=== PATIENT | female | born 1950 | race Two or more races ===

== ENCOUNTER 2024-12-02 14:13 | Emergency (ER) | payer MEDICARE, MEDICAID, SELFPAY ==
[2024-12-02 14:27] VITALS: BP 174/81; PULSE 72; RESP 20; TEMP 36.9; O2SAT 96
--- NOTE | 2024-12-02 14:30 | XR_ITS ---
Examination: CT brain head without contrast. 2-D sagittal coronal reconstructions Date and time of exam:December 02, 2024 1455 hours INDICATIONS: Onset generalized head pain today CTDI: vol (mGy):7 DLP: (mGycm):924 Technique: Multiple CT axial sections of the brain have been obtained, 5 mm slice thickness. Contrast has not been administered. 2-D sagittal, coronal reconstructions have been obtained Low dose protocols were performed. One or more of the following dose reduction techniques were used; automated exposure control, adjustment of the mA and/or KV according to patient size, use of iterative reconstruction technique. Findings: No significant ventricular enlargement. Probable calcification in the left basal ganglia Intra-axial or extra-axial hemorrhage density is not seen. No mass effect or midline shift Basal cisterns are not remarkable. Fourth ventricle is midline. Cranial vault intact. Significant left ethmoid left maxillary and sphenoid sinusitis Impression: Negative for acute hemorrhage, mass effect or midline shift
--- NOTE | 2024-12-02 14:31 | PD.EDRME ---
Rapid Medical Screening Exam E Arrival date/time: 12/02/24 14:13 74-year-old female with no known medical history presents to the emergency room with a chief complaint of a 10 out of 10 left-sided headache x 3 days. Patient is also complaining of generalized body tingling and fatigue I have greeted and performed a focused initial assessment of this patient. A comprehensive ED assessment and evaluation of the patient, analysis of all test results, and completion of the medical decision making process will be conducted by additional ED providers. Chief Complaint: Headache Time Seen by Provider: 12/02/24 14:26 Vital signs: Vital Signs Temperature 98.4 F 12/02/24 14:27 Pulse Rate 72 12/02/24 14:27 Respiratory Rate 20 12/02/24 14:27 Blood Pressure 174/81 H 12/02/24 14:27 Pulse Oximetry (%) 96 12/02/24 14:27 Oxygen Delivery Method Room Air 12/02/24 14:27 Vital signs reviewed by provider: Yes
[2024-12-02 14:56] LABS: Basophils # (Auto) 0.1 Thou/mm3 (0.0-0.2); Basophils % (Auto) 1 % (0-2.5); Eosinophils # (Auto) 0.2 Thou/mm3 (0.0-0.5); Eosinophils % (Auto) 2 % (0-10); Hematocrit 35.9 % (36.0-46.0); Hemoglobin 11.6 g/dL (12.0-16.0); Immature Granulocytes % (Auto) 1 % (0-0); Immature Granulocytes Auto 0.07 Thou/mm3 (0.00-0.00); Lymphocytes # (Auto) 2.7 Thou/mm3 (1.0-4.8); Lymphocytes % (Auto) 23 % (10-50); Mean Corpuscular HGB Conc 32.3 g/dl (31.0-37.0); Mean Corpuscular Hemoglobin 27.7 pg (25.0-35.0); Mean Corpuscular Volume 86 fL (80-100); Monocytes # (Auto) 1.1 Thou/mm3 (0.0-0.8); Monocytes % (Auto) 9 % (0-12); Neutrophils # (Auto) 7.8 Thou/mm3 (1.8-7.7); Neutrophils % (Auto) 65 % (37-80); Nucleated Red Blood Cell % 0 /100 WBC (0); Platelet Count 250 Thou/mm3 (140-440); RDW Standard Deviation 42.1 fL (36.4-46.3); Red Blood Count 4.19 Miln/mm3 (4.00-5.20); White Blood Count 11.9 Thou/mm3 (3.6-11.0)
[2024-12-02 15:12] LABS: B-Type Natriuretic Peptide 206 pg/mL (0-100)
[2024-12-02 15:15] LABS: Collection Type, Urine Clean Catch
[2024-12-02 15:19] LABS: Alanine Aminotransferase 10 U/L (10-49); Albumin, Serum 4.3 gm/dL (3.4-4.8); Albumin/Globulin Ratio 1.6 (1.2-2.2); Alkaline Phosphatase 72 U/L (46-116); Anion Gap 8 (7-16); Aspartate Amino Transferase 15 U/L (0-34); BUN/Creatinine Ratio 7 Ratio (12-20); Bilirubin,Total 0.3 mg/dL (0.3-1.2); Blood Urea Nitrogen 8 mg/dL (9-23); Calcium 9.1 mg/dL (8.3-10.6); Calcium (Corrected) 9.1 mg/dL (8.5-10.1); Carbon Dioxide 25.7 mMol/L (20.0-31.0); Chloride 104 mMol/L (98-107); Creatinine (Component) 1.1 mg/dL (0.6-1.3); Globulin 2.7 gm/dL (2.3-3.5); Glucose 103 mg/dL (74-106); Osmolality,Calculated 273 (275-295); Potassium 4.9 mMol/L (3.4-5.1); Sodium 138 mMol/L (136-145); Troponin I < 0.002 ng/mL (0.0-0.045); eGFR 53 See Note
[2024-12-02 15:31] LABS: Bilirubin,Urine Negative (Negative); Blood,Urine Negative (Negative); Clarity,Urine Clear (Clear/Hazy); Color,Urine Lt-Yellow (Lt Yel-Yel); Glucose, Urine Negative (Negative); Ketones,Urine Negative (Negative); Leukocyte Esterase,Urine Positive (Negative); Nitrite,Urine Negative (Negative); PH,Urine 6.5 (5.0-7.0); Protein,Urine Negative (Neg - Trace); RBC,Urine 2 /hpf (0-3); Specific Gravity,Urine 1.011 (1.001-1.035); Squamous Epithelial Cell,Urine 4 /hpf (0-5); Urobilinogen,Urine Negative mg/dL (0.0-1.0); WBC,Urine 2 /hpf (0-5)
--- NOTE | 2024-12-02 16:29 | EDNOTE_ITS ---
ED Headache RME/HPI General Chief Complaint: Headache Stated Complaint: CRUZ, HTN, weakness, numbness X 4 days Time Seen by Provider: 12/02/24 14:26 Arrival date/time: 12/02/24 14:13 RME / HPI RME / HPI Narrative: 74-year-old female with no known medical history presents to the emergency room with a chief complaint of a 10 out of 10 left-sided headache x 3 days. Patient is also complaining of generalized body tingling and fatigue. Patient denies any blurry vision. Denies any vomiting denies any chest pain denies any other complaints. Patient's family is also confused concerned about the blood pressure. Related Data Previous Rx's ?Medication ?Instructions ?Recorded acetaminophen 300 mg-codeine 30 mg 1 tab PO BID PRN pa in #20 tabs 12/02/24 tablet hydralazine 25 mg tablet 25 mg PO TID PRN htn #30 tab s 12/02/24 Allergies Allergy/AdvReac Type Severity Reaction Status Date / Time No Known Allergies Allergy Verified 12/02/24 14:19 Review of Systems Review of Systems Narrative Review of Systems: Review of system reviewed and within normal limits except mentioned in HPI ED Exam Narrative Physical exam: VITAL SIGNS: Reviewed. GENERAL APPEARANCE: Alert and interactive, follows commands, no acute distress, HEAD AND FACE: Non-traumatic. ENT: PERRL, pink conjunctivitis, eyelid no trauma, Mucous membrane moist. NECK: Supple, nontender, no nuchal rigidity. CHEST: No tenderness, no crepitus, no paradoxical movement, no retractions. LUNGS: Clear, well ventilated, symmetric, no rales, no wheezing, no ronchi, no stridor, good breath sounds bilaterally. HEART: Regular rate, regular rhythm, no murmur, no gallops. ABDOMEN: Soft, positive bowel sounds, nondistended, no guarding, nontender, no rebound, no masses, RECTAL: Deferred. GENITAL: Deferred. NEUROLOGICAL: Gross motor function intact sensory function intact, Appropriate for age. MUSCULOSKELETAL: low back nontender, full range of motion. EXTREMITIES: Nontender, full range of motion. SKIN: Color pink, dry, no rash, no lacerations, no abrasions, no contusions. LYMPHATICS: Deferred. Course Quality Measures none Orders Category Date Time Status EKG (ED ONLY) *Do not use* NOW Care 12/02/24 14:[address] head/brain wo con Stat Exams 12/02/24 14:30 Completed EKG (ED Only) Stat Exams 12/02/24 14:30 Ordered B-Type Natriuretic Peptide Stat Lab 12/02/24 14:39 Completed CBC Stat Lab 12/02/24 14:39 Completed Comprehensive Metabolic Panel Stat Lab 12/02/24 14:39 Completed Troponin I Stat Lab 12/02/24 14:39 Completed Urinalysis Stat Lab 12/02/24 15:11 Completed ACETAMINOPHEN w/COD 300-30 [Tylenol w/Cod #3] Med 12/02/24 16:28 Discontinued 1 tab PO X1 ONE hydrALAZINE HCL [Apresoline] Med 12/02/24 16:28 Discontinued 25 mg PO X1 ONE Vital Signs Vital signs: Vital Signs Temperature 98.4 F 12/02/24 14:27 Pulse Rate 72 12/02/24 14:27 Respiratory Rate 20 12/02/24 14:27 Blood Pressure 174/81 H 12/02/24 14:27 Pulse Oximetry (%) 96 12/02/24 14:27 Oxygen Delivery Method Room Air 12/02/24 14:27 Headache MDM Narrative MDM Narrative:: 74-year-old female with no known medical history presents to the emergency room with a chief complaint of a 10 out of 10 left-sided headache x 3 days. Patient is also complaining of generalized body tingling and fatigue. Patient denies any blurry vision. Denies any vomiting denies any chest pain denies any other complaints. Patient's family is also confused concerned about the blood pressure. EKG showed sinus rhythm, ventricular to 70 bpm, MN interval 131 MS, QRS duration 86 MS, ST segment elevation depression noted. Patient's workup today including CT scan of the head, cardiac workup, all came back unremarkable. Patient was given Tylenol with codeine, and hydralazine with significant fragment of high blood pressure. Blood pressure prior to discharge was noted to be 146/75 Patient data External records reviewed:: None Clinical information provided by:: patient Social determinants that could affect healthcare access:: none Patient has the following chronic illnesses:: Hypertension How is presenting disease/condition affected by chronic disease/condition?: exacerbated by Evaluation data The following diagnostics were reviewed and interpreted by me:: lab results, radiology exam(s) and EKG tracing(s) Lab and/or radiology exams considered but not ordered:: None Interpretation Summary: See results MDM Medications / Prescriptions Medications or Prescriptions considered but not ordered:: None Medication administrations:: Medication Administration History Discontinued Medications Acetaminophen/Codeine Phosphate (Acetaminophen W/Cod 300-30 Tablet) 1 tab PO X1 ONE Stop: 12/02/24 16:29 Last Admin: 12/02/24 17:04 Dose: 1 tab Documented By: VG Hydralazine HCl (Hydralazine Hcl 25 Mg Tablet) 25 mg PO X1 ONE Stop: 12/02/24 16:29 Last Admin: 12/02/24 17:04 Dose: 25 mg Documented By: VG Hydralazine, Tylenol codeine Consultations Consultation(s) initiated? (list below): No Consultation #1 (Physician, Specialty, Details): Stable Diagnosis Differential diagnosis headache: tension headache, headache and other (Hypertension) Most likely diagnosis given after review of the tests above:: Hypertension, headache Admission Indicated Admission indicated?: not indicated Admission Request Was there a request for admission?: No Disposition Plan Disposition Plan: Discharge Discharge Attestation Discharge Attestation: The patient and all family members were given an opportunity to ask questions and understood the discharge instructions. Discharge instructions specifically effects, indications for sooner follow up or return to the emergency department, and the expected course of current diagnosis. Patient condition: Stable Discharge Plan Plan Patient Disposition: HOME (Self Care) Discharge Disposition comment: Stable Prescriptions/Referrals Prescriptions/Med Rec: New hydralazine 25 mg tablet 25 mg PO TID PRN (Reason: htn) Qty: 30 0RF Rx Instructions: Every 8 hours for blood pressure above 180 systolic acetaminophen-codeine 300-30 mg tablet 1 tab PO BID PRN (Reason: pain) Qty: 20 0RF Referrals: Mariza Villeda PA-C [Primary Care Provider] - In 1 week Problem List Clinical Impression: Headache, Hypertension Patient/Caregiver Discharge Instructions Discharge Activity: activity as tolerated Education Materials: ED High Blood Pressure ... Additional Instructions: Thank you for the opportunity for serving you today. You are stable for discharged . You are advised to: Follow-up with your PCP in 1 to 2 days Return to ED for worsening of symptoms Increase oral fluids Take medication as prescribed Print Language: Christiane Stand Alone Forms: Bridget Award Info., Patient Portal Info Letter VIRGILIO/EMILEE Supervising Physician VIRGILIO/INFORMATION RECEPTIONIST Supervising Physician: MD Charlee
[2024-12-02 16:40] VITALS: BP 180/78; PULSE 67; RESP 16; TEMP 36.5; O2SAT 97
[2024-12-02 17:04] VITALS: BP 180/78; PULSE 67
[2024-12-02 17:04] LABS: Band Neutrophils (Manual) 1 % (0-6); Eosinophils (Manual) 2 % (0-4); Lymphocytes (Manual) 18 % (20-44); Monocytes (Manual) 9 % (2-9)
[2024-12-02] MEDS: ACETAMINOPHEN w/COD 300-30 TABLET 1 TAB PO (17:04)
[2024-12-02] MEDS: hydrALAZINE HCL 25 MG TABLET PO (17:04)
[2024-12-02 17:13] LABS: Neutrophils (Manual) 70 % (50-70)
[2024-12-02 17:56] VITALS: BP 146/75; PULSE 68; RESP 18; TEMP 36.4; O2SAT 97
== END 2024-12-02 18:06 | disposition home or self-care (01) ==
PROVIDERS: Nurse Practitioner Family; Emergency Provider Emergency Medicine; PCP Specialist
DX: R51.9 Headache, unspecified (principal); I10 Essential (primary) hypertension; R94.31 Abnormal electrocardiogram [ECG] [EKG]
CPT/HCPCS: 36415; 70450; 80053; 81001; 83880; 84484; 85025; 93005; 99284; A9270

== ENCOUNTER 2024-12-04 21:48 | Emergency (ER) | payer MEDICARE, MEDICAID, SELFPAY ==
[2024-12-04 21:49] VITALS: BMI 25.6
[2024-12-04 22:05] VITALS: BP 179/80; PULSE 66; RESP 18; TEMP 36.9; O2SAT 96
--- NOTE | 2024-12-04 22:14 | PD.EDRME ---
Rapid Medical Screening Exam RME Arrival date/time: 12/04/24 21:48 Chief Complaint: Dizziness Time Seen by Provider: 12/04/24 22:08 Vital signs: Vital Signs Temperature 98.4 F 12/04/24 22:05 Pulse Rate 66 12/04/24 22:05 Respiratory Rate 18 12/04/24 22:05 Blood Pressure 179/80 H 12/04/24 22:05 Pulse Oximetry (%) 96 12/04/24 22:05 Oxygen Delivery Method Room Air 12/04/24 22:05 RME Narrative: Headache, dizziness x 1 week. Patient seen in ED 12/02 for same complaint. Son states patient's blood pressures have been high.
--- NOTE | 2024-12-04 22:15 | EKG_ITS ---
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
[2024-12-04 22:40] LABS: Collection Type, Urine Clean Catch
[2024-12-04 22:44] LABS: Basophils # (Auto) 0.1 Thou/mm3 (0.0-0.2); Basophils % (Auto) 1 % (0-2.5); Eosinophils # (Auto) 0.2 Thou/mm3 (0.0-0.5); Eosinophils % (Auto) 2 % (0-10); Hematocrit 33.7 % (36.0-46.0); Hemoglobin 11.2 g/dL (12.0-16.0); Immature Granulocytes % (Auto) 1 % (0-0); Immature Granulocytes Auto 0.06 Thou/mm3 (0.00-0.00); Lymphocytes # (Auto) 2.9 Thou/mm3 (1.0-4.8); Lymphocytes % (Auto) 28 % (10-50); Mean Corpuscular HGB Conc 33.2 g/dl (31.0-37.0); Mean Corpuscular Hemoglobin 27.9 pg (25.0-35.0); Mean Corpuscular Volume 84 fL (80-100); Monocytes # (Auto) 1.1 Thou/mm3 (0.0-0.8); Monocytes % (Auto) 11 % (0-12); Neutrophils # (Auto) 5.9 Thou/mm3 (1.8-7.7); Neutrophils % (Auto) 58 % (37-80); Nucleated Red Blood Cell % 0 /100 WBC (0); Platelet Count 257 Thou/mm3 (140-440); RDW Standard Deviation 41.7 fL (36.4-46.3); Red Blood Count 4.01 Miln/mm3 (4.00-5.20); White Blood Count 10.1 Thou/mm3 (3.6-11.0)
[2024-12-04 22:56] LABS: Bilirubin,Urine Negative (Negative); Blood,Urine Negative (Negative); Clarity,Urine Clear (Clear/Hazy); Color,Urine Colorless (Lt Yel-Yel); Glucose, Urine Negative (Negative); Ketones,Urine Negative (Negative); Leukocyte Esterase,Urine Positive (Negative); Nitrite,Urine Negative (Negative); Protein,Urine Negative (Neg - Trace); RBC,Urine 2 /hpf (0-3); Specific Gravity,Urine 1.007 (1.001-1.035); Squamous Epithelial Cell,Urine 2 /hpf (0-5); Urobilinogen,Urine Negative mg/dL (0.0-1.0); WBC,Urine 2 /hpf (0-5)
[2024-12-04 23:15] LABS: Alanine Aminotransferase 8 U/L (10-49); Albumin, Serum 4.2 gm/dL (3.4-4.8); Albumin/Globulin Ratio 1.7 (1.2-2.2); Alkaline Phosphatase 74 U/L (46-116); Anion Gap 6 (7-16); Aspartate Amino Transferase 14 U/L (0-34); BUN/Creatinine Ratio 15 Ratio (12-20); Bilirubin,Total 0.3 mg/dL (0.3-1.2); Blood Urea Nitrogen 17 mg/dL (9-23); Carbon Dioxide 28.6 mMol/L (20.0-31.0); Chloride 103 mMol/L (98-107); Creatinine (Component) 1.1 mg/dL (0.6-1.3); Estimated Creatinine Clearance 40.5 mL/min (>60); Globulin 2.5 gm/dL (2.3-3.5); Glucose 115 mg/dL (74-106); Osmolality,Calculated 278 (275-295); Potassium 3.8 mMol/L (3.4-5.1); Sodium 138 mMol/L (136-145); Total Protein 6.7 gm/dL (5.7-8.2); Troponin I < 0.002 ng/mL (0.0-0.045); eGFR 53 See Note
[2024-12-05] MEDS: ACETAMINOPHEN 500 MG TABLET 1000 MG PO (00:46)
[2024-12-05 00:53] VITALS: BP 177/69; BP 182/80; PULSE 62; RESP 17; TEMP 36.7; O2SAT 97
--- NOTE | 2024-12-05 01:35 | PD.EDDIZZY ---
ED Dizzyness RME/HPI General Chief Complaint: Dizziness Stated Complaint: HIGH BLOOD PRESSURE, HEADACHE, DIZZINESS 7 DAYS Time Seen by Provider: 12/04/24 22:08 Arrival date/time: 12/04/24 21:48 RME / HPI RME / HPI Narrative: Headache, dizziness x 1 week. Patient seen in ED 12/02 for same complaint. Son states patient's blood pressures have been high. Dr. Del Rosario?s Main ED Evaluation: 74yo female with a history of HTN BIB her sons presents to the ED for a chief complaint of a headache. Son states the patient has been high in the 180s systolically for the last few days. Per chart review, patient was seen here 3 days ago for the same complaints. Patient reports associated headache. Denies any dizziness, N/V or any other associated symptoms. Patient has been compliant with her medications. Denies any tobacco, alcohol or illicit drug use. No recent travel. PSH includes cholecystectomy. She does not follow-up with a handbag frames inspector. NKA. Related Data Previous Rx's ?Medication ?Instructions ?Recorded acetaminophen 300 mg-codeine 30 mg 1 tab PO BID PRN pain #20 tabs 12/02/24 tablet hydralazine 25 mg tablet 25 mg PO TID PRN htn #30 tabs 12/02/24 Allergies Allergy/AdvReac Type Severity Reaction Status Date / Time No Known Allergies Allergy Verified 12/04/24 21:49 Review of Systems Review of Systems Systems Reviewed: All systems reviewed, normal except as documented Past Medical History Past Medical History CARDIAC: Positive Cardiac Disorders and Hypertension; Negative Congestive Heart Failure RESPIRATORY: Negative Chronic Obstructive Pulmonary Disease (COPD) or Asthma GENITOURINARY: Negative Renal Disease ENDOCRINE: Positive Diabetes Mellitus Type 2; Negative Diabetes Mellitus Type 1 HEMATOLOGIC: Negative Sickle Cell Disease OTHER HISTORY: Negative Cancer Social History SMOKING STATUS: Never smoker ED Exam Narrative Physical exam: GEN. APPEARANCE: The patient is alert awake oriented X-3 in no distress, lying down comfortably, does not look ill/toxic. Patient has good eye contact. Patient is cooperative. VITALS: All vitals were reviewed and the pulse ox is 97% on room air which is normal according to my interpretation. HEENT: Normocephalic, atraumatic. Pupils are equal and reactive. Oral mucosa is moist. Patent Nares NECK: Supple, nontender, no thyromegaly, no meningismus, no JVD CHEST: Symmetrical, atraumatic, and with equal expansion , Nontender on palpation no deformity and no crepitus. CARDIOVASCULAR: Heart regular rhythm no murmur or gallop rub or extra beats. LUNGS: Clear to auscultation bilaterally with symmetrical chest rise. No laboring tachypnea or wheezing. No intercostal subcostal retraction. No rales and no rhonchi. ABDOMEN: Soft, flat, nontender to palpation, no guarding or rebound tenderness. There are no abnormal masses palpated. Active and normal bowel sounds. EXTREMITIES: Nontender. No edema. No cyanosis. Patient is able to move all 4 extremities well, with full ROM and good CSM. SKIN: Warm and dry, no jaundice or rashes noted. NEURO: Patient is SIFUENTES x 4, Cranial nerves II through XII grossly intact. There is no focal neurologic deficits noted. GCS is 15, PNS and CORPORATE STRATEGY ANALYST appear grossly intact. PSYCHIATRIC: Patient is in normal mood and affect. Course Quality Measures none Orders Category Date Time Status EKG (ED ONLY) *Do not use* NOW Care 12/04/24 22:15 Completed EKG (ED Only) Stat Exams 12/04/24 22:15 Draft CBC Stat Lab 12/04/24 22:20 Completed CMP [Comprehensive Metabolic Panel] Stat Lab 12/04/24 22:20 Completed Troponin I Stat Lab 12/04/24 22:20 Completed UA [Urinalysis] Stat Lab 12/04/24 22:35 Completed Acetaminophen Tab [Tylenol ES Tab] Med 12/05/24 00:36 Discontinued 1,000 mg PO X1 ONE Labetalol Tab [Trandate Tab] Med 12/05/24 01:52 Discontinued 100 mg PO X1 ONE Vital Signs Vital signs: Vital Signs Temperature 98.4 F 12/04/24 22:05 Pulse Rate 66 12/04/24 22:05 Respiratory Rate 18 12/04/24 22:05 Blood Pressure 179/80 H 12/04/24 22:05 Pulse Oximetry (%) 96 12/04/24 22:05 Oxygen Delivery Method Room Air 12/04/24 22:05 Dizziness MDM Narrative MDM Narrative:: Scribe Attestation: 12/05/24 Jud Paiz am scribing for and in the presence of Dr. Del Rosario. Patient p/w feeling light headed with elevated blood pressure. VS and exam as listed. Concern for ACS, arrythmia, HTN, UTI, metabolic disturbance among others. Ordered labs EKG and medications for symptom relief. Labs without acute hematologic or significant metabolic abnormality. EKG without evidence of ischemia or arrhythmia, troponin not elevated. UA without evidence of urinary tract infection. On my assessment, patient systolic blood pressure greater than 200. No focal neurodeficits. Had joint decision made conversation with patient and her sons that are adults at bedside. Will move forward with medication for symptom relief and for blood pressure control. Also thoroughly advised to discuss all medication changes with the primary care doctor moving forward as vital medicating at home beyond parameters recommended by her providers may be dangerous to the patient. Patient's adult sons understood. On reevaluation, patient's blood pressure improved. Will discharge to home with close return precautions follow-up with her primary care doctor. Also recommended that it would be to her benefit to get a stress test and to be evaluated by a handbag frames inspector for further blood pressure control. Patient data External records reviewed:: [facility] previous records (Per chart review, patient was seen here on 12/02/24 for a headache.) Clinical information provided by:: patient Social determinants that could affect healthcare access:: none Patient has the following chronic illnesses:: HTN How is presenting disease/condition affected by chronic disease/condition?: uneffected by Evaluation data The following diagnostics were reviewed and interpreted by me:: lab results and EKG tracing(s) Lab and/or radiology exams considered but not ordered:: none Interpretation Summary: CBC normal, CMP normal, Troponin normal, UA unremarkable. EKG done at 2230, NSR, rate of 67, normal intervals, nonspecific ST-T changes, no acute ischemia, according to my interpretation. Medications / Prescriptions Medications or Prescriptions considered but not ordered:: none Medication administrations:: Medication Administration History Discontinued Medications Acetaminophen (Acetaminophen 500 Mg Tablet) 1,000 mg PO X1 ONE Stop: 12/05/24 00:37 Last Admin: 12/05/24 00:46 Dose: 1,000 mg Documented By: Labetalol HCl (Labetalol 100 Mg Tablet) 100 mg PO X1 ONE Stop: 12/05/24 01:53 Last Admin: 12/05/24 02:18 Dose: 100 mg Documented By: MC see above Consultations Consultation(s) initiated? (list below): No Diagnosis Dizziness Differential Diagnosis: other (ACS, arrhythmia, metabolic disturbance) Most likely diagnosis given after review of the tests above:: see clinical impression below Admission Indicated Admission indicated?: not indicated Admission Request Was there a request for admission?: No Disposition Plan Disposition Plan: Discharge Discharge Attestation Discharge Attestation: The patient and all family members were given an opportunity to ask questions and understood the discharge instructions. Discharge instructions specifically effects, indications for sooner follow up or return to the emergency department, and the expected course of current diagnosis. Patient condition: Stable Discharge Plan Plan Patient Disposition: HOME (Self Care) Prescriptions/Referrals Prescriptions/Med Rec: No Action hydralazine 25 mg tablet 25 mg PO TID PRN (Reason: htn) Qty: 30 0RF Rx Instructions: Every 8 hours for blood pressure above 180 systolic acetaminophen-codeine 300-30 mg tablet 1 tab PO BID PRN (Reason: pain) Qty: 20 0RF Referrals: No Primary/Family,Physician [Primary Care Provider] - In 1 week Problem List Clinical Impression: Hypertension, Headache Patient/Caregiver Discharge Instructions Additional Instructions: Please request an appointment to see a handbag frames inspector for a stress test and for management of your hypertension at home. Return immediately if have worsening symptoms, or any other symptom of concern. Print Language: Christiane Stand Alone Forms: Bridget Award Info., Patient Portal Info Letter
[2024-12-05 02:18] VITALS: BP 173/78; PULSE 61
[2024-12-05] MEDS: LABETALOL 100 MG TABLET PO (02:18)
[2024-12-05 02:25] VITALS: BP 173/78; PULSE 61; RESP 18; O2SAT 100
== END 2024-12-05 02:56 | disposition home or self-care (01) ==
PROVIDERS: Physician Assistant; Emergency Provider Emergency Medicine
DX: R51.9 Headache, unspecified (principal); I10 Essential (primary) hypertension
CPT/HCPCS: 36415; 80053; 81001; 84484; 85025; 93005; 99283; A9270